=== PATIENT | female | born 1950 | race Caucasian/White ===

== ENCOUNTER 2017-02-03 13:36 | Observation (INO) | payer OTHER, MEDICARE ==
[~2017-02-03] VITALS: Ht 175.3 cm; Wt 61.6 kg
[2017-02-03 13:55] VITALS: BP 99/59; PULSE 77; RESP 18; TEMP 98.4; O2SAT 96; O2SAT 97
--- NOTE | 2017-02-03 14:11 | PD ---
HPI Chief Complaint: General Weakness Time Seen by Provider: 14:06 Travel History International Travel<30 days: No Contact w/Intl Traveler<30days: No Traveled to known affect area: No History of Present Illness HPI 66-year-old female that presents to the ED for evaluation of possible altered mental status. Most of the information is provided by ambulance as patient herself is not really good historian is not really cooperative. Patient states that she has a history of cancer and chronic back and leg pain. Patient takes apparently morphine. Per ambulance report they where called because the [facility] sponsored went to her house and noticed that she was altered and cannot take care of herself that she was brought here. Apparently per ambulance she was not cooperative and she did not want to come here so they had to have a long conversation with parent after an hour she decided to come. Per patient she feels very weak and she feels like she cannot do anything. She per ambulance report to a morphine pill in front of her and she was lethargic during that time. Per nurse report she's been here before also per her medical records here that did not appear to be so. She is chronically was [facility] acted before. She denies any other medical issue. Per patient she lives alone. Per patient he has no family in the area.. She has no allergies to medication. She does appear to be lethargic on exam but she is easily arousable and appears to be alert and oriented 3. PFSH Past Medical History ?: Not Social History Alcohol Use: No (on occassion) Tobacco Use: No Substance Use: No Allergies-Medications (Allergen,Severity, Reaction): Coded Allergies: No Known Allergies (Unverified , 02/03/17) Reported Meds & Prescriptions Reported Meds & Active Scripts Active Reported Restoril (Temazepam) 30 Mg Cap 30 Mg PO HS Morphine IR (Morphine Sulfate) 15 Mg Tab 15 Mg PO Q6HR PRN Morphine ER (Morphine Sulfate) 30 Mg Tab 30 Mg PO BID Review of Systems ROS Limitations: Uncooperative, Poor Historian Except as stated in HPI: all other systems reviewed are Neg Physical Exam Exam Limitations: Poor Historian, Uncooperative Narrative GENERAL: SKIN: Warm and dry. HEAD: Atraumatic. Normocephalic. EYES: Pupils equal and round. No scleral icterus. No injection or drainage. ENT: No nasal bleeding or discharge. Mucous membranes pink and moist. Tongue is midline. No uvula deviation. NECK: Trachea midline. No JVD. CARDIOVASCULAR: Regular rate and rhythm. No murmurs, S3, S4. RESPIRATORY: No accessory muscle use. Clear to auscultation. Breath sounds equal bilaterally. GASTROINTESTINAL: Abdomen soft, non-tender, nondistended. Hepatic and splenic margins not palpable. MUSCULOSKELETAL: Extremities without clubbing, cyanosis, or edema. No obvious deformities. Full range of motion of the upper and lower extremities bilaterally. 2+ pulses bilaterally. NEUROLOGICAL: Awake and alert and oriented 3. No obvious cranial nerve deficits. Motor grossly within normal limits. Five out of 5 muscle strength in the arms and legs. Normal speech. PSYCHIATRIC: Appropriate mood and affect; insight and judgment normal. Data Data Last Documented VS Vital Signs Date Time Temp Pulse Resp B/P Pulse Ox O2 Delivery O2 Flow Rate FiO2 02/03/17 15:39 74 18 91/62 98 Room Air 02/03/17 13:55 98.4 Orders Electrocardiogram (02/03/17 13:51) Ammonia (02/03/17 13:51) Complete Blood Count With Diff (02/03/17 13:51) Comprehensive Metabolic Panel (02/03/17 13:51) Creatine Kinase (Cpk) (02/03/17 13:51) Prothrombin Time / Inr (Pt) (02/03/17 13:51) Act Partial Throm Time (Ptt) (02/03/17 13:51) Troponin I (02/03/17 13:51) Thyroid Stimulating Hormone (02/03/17 13:51) Urinalysis - C+S If Indicated (02/03/17 13:51) Lactic Acid Sepsis Protocol (02/03/17 13:51) Blood Culture (02/03/17 13:51) Chest, Single Ap (02/03/17 13:51) Ct Brain W/O Iv Contrast(Rout) (02/03/17 13:51) Blood Glucose (02/03/17 13:51) Ecg Monitoring (02/03/17 13:51) Iv Access Insert/Monitor (02/03/17 13:51) Oximetry (02/03/17 13:51) Free T3 (02/03/17 15:26) Thyroxine (T4) (02/03/17 15:26) Dexamethasone Inj (Decadron Inj) (02/03/17 15:30) Labs Laboratory Tests Test 02/03/17 02/03/17 14:10 14:22 White Blood Count 4.1 TH/MM3 Red Blood Count 2.93 MIL/MM3 Hemoglobin 9.0 GM/DL Hematocrit 27.0 % Mean Corpuscular Volume 92.3 FL Mean Corpuscular Hemoglobin 30.8 PG Mean Corpuscular Hemoglobin 33.3 % Concent Red Cell Distribution Width 18.8 % Platelet Count 206 TH/MM3 Mean Platelet Volume 8.7 FL Neutrophils (%) (Auto) 52.3 % Lymphocytes (%) (Auto) 39.2 % Monocytes (%) (Auto) 5.8 % Eosinophils (%) (Auto) 1.4 % Basophils (%) (Auto) 1.3 % Neutrophils # (Auto) 2.1 TH/MM3 Lymphocytes # (Auto) 1.6 TH/MM3 Monocytes # (Auto) 0.2 TH/MM3 Eosinophils # (Auto) 0.1 TH/MM3 Basophils # (Auto) 0.1 TH/MM3 CBC Comment DIFF FINAL Differential Comment Prothrombin Time 11.1 SEC Prothromb Time International 1.0 RATIO Ratio Activated Partial 31.9 SEC Thromboplast Time Sodium Level 142 MEQ/L Potassium Level 4.5 MEQ/L Chloride Level 111 MEQ/L Carbon Dioxide Level 27.0 MEQ/L Anion Gap 4 MEQ/L Blood Urea Nitrogen 15 MG/DL Creatinine 0.97 MG/DL Estimat Glomerular Filtration 58 ML/MIN Rate Random Glucose 68 MG/DL Calcium Level 8.2 MG/DL Total Bilirubin 0.4 MG/DL Aspartate Amino Transf 18 U/L (AST/SGOT) Alanine Aminotransferase 14 U/L (ALT/SGPT) Alkaline Phosphatase 76 U/L Total Creatine Kinase 192 U/L Troponin I LESS THAN 0.02 NG/ML Total Protein 7.0 GM/DL Albumin 3.2 GM/DL Thyroid Stimulating Hormone 71.300 uIU/ML 3rd Gen Lactic Acid Level 0.6 mmol/L Ammonia 25 MCMOL/L [facility] Medical Decision Making Medical Screen Exam Complete: Yes Emergency Medical Condition: Yes Medical Record Reviewed: Yes Interpretation(s) CBC & BMP Diagram 02/03/17 14:10 TSH in the 70s LFTS WNL ammonia WNL EKG shows sinus rhythm with no sign of acute ischemia or arrythmia. troponin and CKMB negative Differential Diagnosis Altered mental status versus medication abuse versus failure to take care of self versus chronic pain versus psychiatric illness versus sepsis Narrative Course 66-year-old female that presents to the ED for evaluation of altered mental status. Patient was properly examined and was found to have signs and symptoms consistent appears to be altered mental status. Unclear etiology. Patient is not a good historian she has no family in the area or anybody to provide any information. She lives by herself. Per nurse report she was here as a [facility] acted before but I have no records of this. Labs and imaging will be ordered. Patient was found to be slightly hypotensive of per patient this is her normal. She does appear to be somewhat under the influence of narcotics as she is somewhat somnolent and arousable. Labs and imaging here show very high TSH. The look of the previous note and patient was just admitted actually less than a couple weeks ago. Patient wants similar presentation. Patient had more of hepatic altered mental status. I have a strong suspicion that likely her symptoms are related to the hypothyroidism and she is likely not taking her medications. Case was discussed with my attending Dr. Abreu who evaluated the patient with me and recommend started on Decadron and doing additional labs for the thyroid disease. He also recommends admission. Patient was admitted to Dr. Quiroga who agrees to admission. Procedures EKG Prior to Arrival: No Diagnosis Primary Impression: Altered mental status Qualified Code: R41.82 - Altered mental status, unspecified altered mental status type Additional Impressions: Hypothyroidism Qualified Code: E03.9 - Hypothyroidism, unspecified type Hypotension Qualified Code: I95.9 - Hypotension, unspecified hypotension type Failure to thrive in adult Admitting Information Admitting Physician Requests: Admit Sunny Orantes February 03, 2017 14:11
[2017-02-03] MEDS ORDERED: MSIR15 PO (14:17)
[2017-02-03] MEDS ORDERED: MORP1TAB25 PO (14:17)
[2017-02-03] MEDS ORDERED: REST30CA PO (14:17)
[2017-02-03 14:22] LABS: AUTOMATED NEUTROPHIL # 2.1 TH/MM3 (1.8-7.7); BASOPHIL # 0.1 TH/MM3 (0-0.2); BASOPHIL % 1.3 % (0.0-2.0); EOSINOPHIL # 0.1 TH/MM3 (0-0.4); EOSINOPHIL % 1.4 % (0.0-4.0); HEMO FLAGS DIFF FINAL; LYMPH % 39.2 % (9.0-44.0); LYMPHOCYTE # 1.6 TH/MM3 (1.0-4.8); MEAN CELL VOLUME 92.3 FL (80.0-100.0); MEAN CORPUSCULAR HEMOGLOBIN 30.8 PG (27.0-34.0); MEAN CORPUSCULAR HGB CONC 33.3 % (32.0-36.0); MONO % 5.8 % (0.0-8.0); NEUT % 52.3 % (16.0-70.0); PLATELET COUNT 206 TH/MM3 (150-450); RED BLOOD COUNT 2.93 MIL/MM3 (4.00-5.30); RED CELL DISTRIBUTION WIDTH 18.8 % (11.6-17.2); WHITE BLOOD COUNT 4.1 TH/MM3 (4.0-11.0)
--- NOTE | 2017-02-03 14:26 | RADRPT ---
EXAM DATE/TIME: 02/03/2017 13:52 [facility] COMPARISON: No previous studies available for comparison. INDICATIONS : Short of breath MEDICAL HISTORY : None. SURGICAL HISTORY : None. ENCOUNTER: Initial ACUITY: 1 day PAIN SCORE: 0/10 LOCATION: Bilateral chest FINDINGS: Rotated portable AP view of the chest demonstrates a normal-sized cardiac silhouette. Lungs are under inflated with atelectasis at the bases. No effusion, consolidation, or pneumothorax is identified. Dawood tish and soft tissues demonstrate no acute finding. There is an old healed left clavicle fracture. Cli ps overlie the right upper quadrant. CONCLUSION: Underinflation with mild atelectasis at the lung bases. Otherwise, no acute finding is identified. Max Lee MD on February 03, 2017 at 14:23 Board Certified Radiologist. This report was verified electronically.
[2017-02-03 14:33] LABS: APTT (PATIENT) 31.9 SEC (24.3-30.1); PROTHROMBIN TIME - PATIENT 11.1 SEC (9.8-11.6)
[2017-02-03 14:48] VITALS: BP 83/53; PULSE 72; RESP 18; O2SAT 97
[2017-02-03 14:57] LABS: ALT (GPT) 14 U/L (10-53); ANION GAP 4 MEQ/L (5-15); BLOOD UREA NITROGEN 15 MG/DL (7-18); CHLORIDE 111 MEQ/L (98-107); GLOMERULAR FILTRATION RATE 58 ML/MIN (>89); POTASSIUM 4.5 MEQ/L (3.5-5.1); SODIUM (NA) 142 MEQ/L (136-145)
[2017-02-03 15:24] LABS: ALKALINE PHOSPHATASE 76 U/L (45-117); AST (GOT) 18 U/L (15-37); CREATINE KINASE 192 U/L (26-192); TOTAL BILIRUBIN ADULT 0.4 MG/DL (0.2-1.0)
[2017-02-03] MEDS ORDERED: DEXAMETHASONE SOD PHOS 20 MG/5 ML VIAL IV PUSH ONE (15:30)
[2017-02-03 15:39] VITALS: BP 91/62; PULSE 74; RESP 18; O2SAT 98
--- NOTE | 2017-02-03 16:31 | PD ---
Data Data Last Documented VS Vital Signs Date Time Temp Pulse Resp B/P Pulse Ox O2 Delivery O2 Flow Rate FiO2 02/03/17 15:39 74 18 91/62 98 Room Air 02/03/17 13:55 98.4 Orders Electrocardiogram (02/03/17 13:51) Ammonia (02/03/17 13:51) Complete Blood Count With Diff (02/03/17 13:51) Comprehensive Metabolic Panel (02/03/17 13:51) Creatine Kinase (Cpk) (02/03/17 13:51) Prothrombin Time / Inr (Pt) (02/03/17 13:51) Act Partial Throm Time (Ptt) (02/03/17 13:51) Troponin I (02/03/17 13:51) Thyroid Stimulating Hormone (02/03/17 13:51) Urinalysis - C+S If Indicated (02/03/17 13:51) Lactic Acid Sepsis Protocol (02/03/17 13:51) Blood Culture (02/03/17 13:51) Chest, Single Ap (02/03/17 13:51) Blood Glucose (02/03/17 13:51) Ecg Monitoring (02/03/17 13:51) Iv Access Insert/Monitor (02/03/17 13:51) Oximetry (02/03/17 13:51) Free T3 (02/03/17 15:26) Thyroxine (T4) (02/03/17 15:26) Dexamethasone Inj (Decadron Inj) (02/03/17 15:30) Admit Order (Ed Use Only) (02/03/17 16:00) Labs Laboratory Tests Test 02/03/17 02/03/17 14:10 14:22 White Blood Count 4.1 TH/MM3 Red Blood Count 2.93 MIL/MM3 Hemoglobin 9.0 GM/DL Hematocrit 27.0 % Mean Corpuscular Volume 92.3 FL Mean Corpuscular Hemoglobin 30.8 PG Mean Corpuscular Hemoglobin 33.3 % Concent Red Cell Distribution Width 18.8 % Platelet Count 206 TH/MM3 Mean Platelet Volume 8.7 FL Neutrophils (%) (Auto) 52.3 % Lymphocytes (%) (Auto) 39.2 % Monocytes (%) (Auto) 5.8 % Eosinophils (%) (Auto) 1.4 % Basophils (%) (Auto) 1.3 % Neutrophils # (Auto) 2.1 TH/MM3 Lymphocytes # (Auto) 1.6 TH/MM3 Monocytes # (Auto) 0.2 TH/MM3 Eosinophils # (Auto) 0.1 TH/MM3 Basophils # (Auto) 0.1 TH/MM3 CBC Comment DIFF FINAL Differential Comment Prothrombin Time 11.1 SEC Prothromb Time International 1.0 RATIO Ratio Activated Partial 31.9 SEC Thromboplast Time Sodium Level 142 MEQ/L Potassium Level 4.5 MEQ/L Chloride Level 111 MEQ/L Carbon Dioxide Level 27.0 MEQ/L Anion Gap 4 MEQ/L Blood Urea Nitrogen 15 MG/DL Creatinine 0.97 MG/DL Estimat Glomerular Filtration 58 ML/MIN Rate Random Glucose 68 MG/DL Calcium Level 8.2 MG/DL Total Bilirubin 0.4 MG/DL Aspartate Amino Transf 18 U/L (AST/SGOT) Alanine Aminotransferase 14 U/L (ALT/SGPT) Alkaline Phosphatase 76 U/L Total Creatine Kinase 192 U/L Troponin I LESS THAN 0.02 NG/ML Total Protein 7.0 GM/DL Albumin 3.2 GM/DL Thyroxine (T4) 1.7 MCG/DL Free Triiodothyronine (T3) 0.56 PG/ML pg/dL Thyroid Stimulating Hormone 71.300 uIU/ML 3rd Gen Lactic Acid Level 0.6 mmol/L Ammonia 25 MCMOL/L [facility] Supervised Visit with TOM: Yes Narrative Course I, Dr. Abreu, have reviewed the advance practice practitioner's documentation and am in agreement, met with the patient face to face, made the diagnosis, and the medical decision making was done by me. *My assessment and Findings: 66-year-old female presents some somnolent decreased energy. My physical exam please neurologically intact but somnolent. She is able to give a complete history. When asked if she has thyroid problems she said yes and states he has not been taking her medicine. 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 She was given Decadron and any additional free T3 and free T4 labs were sent. Patient will be for admission with [facility]. Diagnosis Primary Impression: Altered mental status Qualified Code: R41.82 - Altered mental status, unspecified altered mental status type Additional Impressions: Hypothyroidism Qualified Code: E03.9 - Hypothyroidism, unspecified type Failure to thrive in adult Hypotension Qualified Code: I95.9 - Hypotension, unspecified hypotension type Admitting Information Admitting Physician Requests: Admit Scripts Levothyroxine 25 Mcg Tab25 Mcg PO DAILY@0600 #30 TAB Ref 3 Prov:Gadiel Kirby MD 02/04/17 Sennosides-Docusate Sodium (Ashley-Colace)8.6-50 Mg Tab1 Tab PO BID PRN ( Constipation) #60 TAB Ref 0 Prov:Gadiel Kirby MD 02/04/17 Condition: Stable [place] Abreu MD February 03, 2017 16:31
[2017-02-03] MEDS: SODIUM CHLOR 0.9% 1000 ML INJ 1,000 ML IV SCH ×2 (17:00→18:23)
[2017-02-03] MEDS ORDERED: MAGNESIUM HYDROXIDE SUSP 30 ML CUP PO PRN (17:00)
[2017-02-03] MEDS ORDERED: ONDANSETRON HCL 4 MG/2 ML VIAL IVP PRN (17:00)
[2017-02-03] MEDS ORDERED: ACETAMINOPHEN 325 MG TAB PO PRN (17:00)
[2017-02-03] MEDS: HEPARIN SODIUM - SQ 10,000 UNITS/ML VIAL SQ SCH (17:00)
[2017-02-03] MEDS ORDERED: NALOXONE HCL 0.4 MG/ML AMP IV PRN (17:00)
[2017-02-03 17:04] LABS: FREE T3 0.56 PG/ML (2.18-3.98); THYROXINE (T4) 1.7 MCG/DL (4.8-13.9)
[2017-02-03 17:25] LABS: BACTERIA, URINE RARE /hpf; BLOOD, URINE NEG (NEG); GLUCOSE,URINE NEG (NEG); KETONE, URINE NEG (NEG); NITRITE,URINE NEG (NEG); URINE COLOR YELLOW (YELLW/STRAW)
[2017-02-03 17:27] LABS: COMMENT (UR) CATH-CULTURE IND; CULTURE IF INDICATED CATH CULTURE IND
[2017-02-03 17:54] VITALS: BP 98/56; PULSE 78; RESP 18; O2SAT 98
[2017-02-03 18:41] VITALS: BP 110/67; PULSE 71; RESP 19; TEMP 95.3; O2SAT 91
[2017-02-03 20:47] VITALS: BP 108/73; PULSE 75; RESP 18; TEMP 97.7; O2SAT 97
[2017-02-03] MEDS ORDERED: RESP: ALBUTEROL 2.5 MG/IPRATROPIUM 0.5 MG NEB (PRN) NEB (21:15)
[2017-02-03] MEDS ORDERED: MORPHINE SULFATE 15 MG TAB PO PRN (21:15)
[2017-02-03] MEDS ORDERED: MORPHINE SULFATE 4 MG/ML INJ IV PUSH PRN (21:15)
[2017-02-03] MEDS: DEXT 5%-NACL 0.45% 1000 ML INJ 1,000 ML IV SCH (21:15)
--- NOTE | 2017-02-03 21:24 | HHI.HP ---
[facility] No Primary Care Physician Admission Diagnosis altered mental status, severe hypothyroidism, hypotension Diagnoses: Chief Complaint: Feeling unwell Travel History International Travel<30 Days: No Contact w/Intl Traveler <30 Da: No Traveled to Known Affected Are: No History of Present Illness The patient is a 66-year-old female with past medical history of medullary thyroid cancer who is presenting to the hospital feeling unwell. She says her symptoms started on Friday where she noted to develop a sick stomach. She endorsed diarrhea and nausea and vomiting. She says the diarrhea has been alternating with constipation. She says over the past few days she has actually had to manually disimpact herself. She says that she has had a hard time breathing over the past 6 hours and has progressively been getting worse. She denies any chest pain. She does endorse a difficult time swallowing and wanted to see if water would help with that. She says she believes she might of had a stroke a few weeks ago because she notes a new facial droop. She says she has previously been on hospice but quit that because she did not like the way she felt like she was on " watch". She says she is open to trying a different hospice group. She believes she was with [facility] previously. The pt also endorses fluctuating edema in the lower extremities which has currently improved. Review of Systems ROS Limitations: Clinical Condition, Poor Historian Except as stated in HPI: all other systems reviewed are Neg Past Family Social History Past Medical History Medullary thyroid cancer Tuberculosis Hypotension Allergies: Coded Allergies: No Known Allergies (Unverified , 02/03/17) Active Ordered Medications Current Medications Medications (Trade) Dose Ordered Sig/Britany Route Start Time Stop Time Status Last Admin (NS 1000 ml Inj) 1,000 ml @ 75 mls/hr [id number] IV 02/03/17 17:00 02/03/17 18:23 (Tylenol) 650 mg Q4H PRN PO 02/03/17 17:00 (Zofran Inj) 4 mg Q6H PRN IVP 02/03/17 17:00 (Milk Of Magnesia Liq) 30 ml Q12H PRN PO 02/03/17 17:00 (Heparin Inj) 5,000 units Q12H SQ 02/03/17 17:00 (Narcan Inj) 0.4 mg UNSCH PRN IV 02/03/17 17:00 (SoluMEDROL INJ) 125 mg ONCE ONCE IV PUSH 02/03/17 21:15 02/03/17 21:16 UNV Methylprednisolone Sodium Succinate 40 mg 40 mg Q6HR IV PUSH 02/04/17 03:00 UNV (Levaquin 750 Mg Premix Inj) 150 ml @ 100 mls/hr Q24H IV 02/03/17 21:15 UNV Family History Her daughter of an aneurysm Her father of a heart attack Social History The patient says she still smokes. She does drink rarely. Physical Exam Vital Signs Vital Signs Date Time Temp Pulse Resp B/P Pulse Ox O2 Delivery O2 Flow Rate FiO2 02/03/17 20:47 97.7 75 18 108/73 97 02/03/17 18:41 95.3 71 19 110/67 91 02/03/17 17:54 78 18 98/56 98 Room Air 02/03/17 15:39 74 18 91/62 98 Room Air 02/03/17 14:48 72 18 83/53 97 Room Air 02/03/17 13:55 80 18 100 Room Air 02/03/17 13:55 18 96 Room Air 02/03/17 13:55 98.4 77 18 99/59 97 Room Air Physical Exam GENERAL: Appears frail, older than stated age. SKIN: Warm and dry. HEAD: Atraumatic. Normocephalic. EYES: Pupils equal and round. No scleral icterus. No injection or drainage. ENT: No nasal bleeding or discharge. Mucous membranes pink and moist. Tongue is midline. No uvula deviation. NECK: Trachea midline. No JVD. CARDIOVASCULAR: Regular rate and rhythm. No murmurs, S3, S4. RESPIRATORY: No accessory muscle use. Diffuse wheezing noted. GASTROINTESTINAL: Abdomen soft, non-tender, nondistended. Hepatic and splenic margins not palpable. MUSCULOSKELETAL: Extremities without clubbing, cyanosis, or edema. No obvious deformities. Full range of motion of the upper and lower extremities bilaterally. 2+ pulses bilaterally. NEUROLOGICAL: Awake and alert and oriented 3. No obvious cranial nerve deficits. Motor grossly within normal limits. Five out of 5 muscle strength in the arms and legs. Normal speech. PSYCHIATRIC: Flattened affect. Laboratory Laboratory Tests Test 02/03/17 02/03/17 02/03/17 14:10 14:22 17:03 White Blood Count 4.1 Red Blood Count 2.93 Hemoglobin 9.0 Hematocrit 27.0 Mean Corpuscular Volume 92.3 Mean Corpuscular Hemoglobin 30.8 Mean Corpuscular Hemoglobin 33.3 Concent Red Cell Distribution Width 18.8 Platelet Count 206 Mean Platelet Volume 8.7 Neutrophils (%) (Auto) 52.3 Lymphocytes (%) (Auto) 39.2 Monocytes (%) (Auto) 5.8 Eosinophils (%) (Auto) 1.4 Basophils (%) (Auto) 1.3 Neutrophils # (Auto) 2.1 Lymphocytes # (Auto) 1.6 Monocytes # (Auto) 0.2 Eosinophils # (Auto) 0.1 Basophils # (Auto) 0.1 CBC Comment DIFF FINAL Differential Comment Prothrombin Time 11.1 Prothromb Time International 1.0 Ratio Activated Partial 31.9 Thromboplast Time Sodium Level 142 Potassium Level 4.5 Chloride Level 111 Carbon Dioxide Level 27.0 Anion Gap 4 Blood Urea Nitrogen 15 Creatinine 0.97 Estimat Glomerular Filtration 58 Rate Random Glucose 68 Calcium Level 8.2 Total Bilirubin 0.4 Aspartate Amino Transf 18 (AST/SGOT) Alanine Aminotransferase 14 (ALT/SGPT) Alkaline Phosphatase 76 Total Creatine Kinase 192 Troponin I LESS THAN 0.02 Total Protein 7.0 Albumin 3.2 Thyroxine (T4) 1.7 Free Triiodothyronine (T3) 0.56 pg/dL Thyroid Stimulating Hormone 71.300 3rd Gen Lactic Acid Level 0.6 Ammonia 25 Urine Color YELLOW Urine Turbidity CLEAR Urine pH 6.0 Urine Specific [place] 1.014 Urine Protein NEG Urine Glucose (UA) NEG Urine Ketones NEG Urine Occult Blood NEG Urine Nitrite NEG Urine Bilirubin NEG Urine Urobilinogen 2.0 Urine Leukocyte Esterase NEG Urine RBC LESS THAN 1 Urine WBC 1 Urine Bacteria RARE Microscopic Urinalysis Comment CATH-CULTURE IND Date/Time Procedure Status Source Growth 02/03/17 17:03 Urine Culture Received Urine Catheterized Urine Pending 02/03/17 14:40 Aerobic Blood Culture Received Blood Peripheral Pending 02/03/17 14:40 Anaerobic Blood Culture Received Blood Peripheral Pending Result Diagram: 02/03/17 1410 02/03/17 1410 Imaging Last Impressions Chest X-Ray 02/03/17 1351 Signed Impressions: Service Date/Time: Friday, February 03, 2017 13:52 - CONCLUSION: Underinflation with mild atelectasis at the lung bases. Otherwise, no acute finding is identified. Max Lee MD Assessment and Plan Assessment and Plan Dyspnea The patient endorses shortness of breath that has been progressively getting worse. She has wheezing on exam. Chest x-ray without acute abnormality. She does have a history of smoking and may have underlying COPD. - Check an ABG. - Start IV Solu-Medrol and standing duo nebs. - Oxygen as needed. - Start IV Levaquin. Nausea and vomiting/ Constipation/ Difficulty swallowing The patient endorses symptoms going on for a couple days prior to presentation. She endorses difficulty swallowing. She has been manually disimpacting herself at home. - Bowel regimen. - Antiemetics as needed. - Keep the patient nothing by mouth with IV fluids for now. - Swallow evaluation pending. Hypothyroidism TSH markedly elevated. Free T4 and T3 are low. - Start levothyroxine 25 g daily and monitor. Anemia Likely anemia of chronic disease. - Follow CBC and transfuse as needed. Hypoglycemia Likely secondary to decreased by mouth intake. - Switch IV fluids to D5 half normal saline. - Follow glucose every 6 hours. - Swallow evaluation pending. Advance diet as tolerated. The patient is nothing by mouth for now. UTI UA indicative of possible infection. - Continue Levaquin and follow urine culture. Failure to thrive The patient says she was previously on hospice care. She affirms she is DNR. She is interested in home hospice. - hospice and case management consults placed. - PT/ ST evals. - the pt does not want to be discharged to a retirement. Eval for home hospice as above. - continue chronic pain meds. PPx: SCDs. Code Status DNR. Discussed Condition With Pt. Physician Certification 2 Midnight Certification Type: Admission for Inpatient Services Order for Inpatient Services The services are ordered in accordance with Medicare regulations or non- Medicare payer requirements, as applicable. In the case of services not specified as inpatient-only, they are appropriately provided as inpatient services in accordance with the 2-midnight benchmark. Estimated LOS (days): 2 days is the estimated time the patient will need to remain in the hospital, assuming treatment plan goals are met and no additional complications. Post-Hospital Plan: Not yet determined Jericho Reilly DO February 03, 2017 21:24
[2017-02-03 21:47] LABS: HEMATOCRIT 32.6 % (35.0-46.0); REVIEW FLAG FINAL
[2017-02-03] MEDS ORDERED: methylPREDNISolone SOD SUCC 125 MG/2 ML VIAL IV PUSH ONE (22:00)
[2017-02-03 22:14] LABS: CREATINE KINASE 203 U/L (26-192)
[2017-02-03] MEDS: RESP: ALBUTEROL 2.5 MG/IPRATROPIUM 0.5 MG NEB (SCH) NEB (22:22)
[2017-02-03 22:26] LABS: CKMB 6.9 NG/ML (0.5-3.6)
[2017-02-03 22:34] LABS: BLOOD GAS BASE EXCESS -3.2 mmol/L (-2-2); BLOOD GAS CARBOXYHEMOGLOBIN 1.6 % (0-4); BLOOD GAS HCO3 22 mmol/L (22-26); BLOOD GAS METHEMOGLOBIN 0.7 % (0-2); BLOOD GAS O2 HGB SATURATION 91 % (90-100); BLOOD GAS OXYGEN CONTENT 13.3 Vol % (12.0-20.0); BLOOD GAS PCO2 41 mmHg (38-42); BLOOD GAS PO2 83 mmHg (61-120); BLOOD GAS TOTAL HGB 10.4 G/DL (12.0-16.0); TEMP CORR TO 98.6
[2017-02-03 22:35] LABS: CRITICAL VALUE NO; DRAW SITE RT RADIAL; FIO2 21 %; NUMBER OF ARTERIAL PUNCTURES 1; OXYGEN DEVICE ROOM AIR; STAT YES; ULNAR PULSE PRESENT
[2017-02-03] MEDS: LEVOFLOXACIN 750 MG PREMIX INJ 150 ML IV SCH ×2 (23:03→23:13)
[2017-02-04 00:45] VITALS: BP 92/61; PULSE 75; RESP 18; TEMP 97.8; O2SAT 96
[2017-02-04 02:31] LABS: CREATINE KINASE 157 U/L (26-192)
[2017-02-04] MEDS ORDERED: methylPREDNISolone SOD SUCC 40 MG/1 ML VIAL IV PUSH SCH (04:00)
[2017-02-04] MEDS: HEPARIN SODIUM - SQ 10,000 UNITS/ML VIAL SQ SCH (04:14)
[2017-02-04 05:23] VITALS: BP 128/83; PULSE 72; RESP 20; TEMP 97.1; O2SAT 99
[2017-02-04 06:00] VITALS: PULSE 68
[2017-02-04] MEDS: LEVOTHYROXINE SODIUM 25 MCG TAB PO SCH ×2 (06:00→09:47)
[2017-02-04 07:39] VITALS: O2SAT 98
[2017-02-04] MEDS: RESP: ALBUTEROL 2.5 MG/IPRATROPIUM 0.5 MG NEB (SCH) NEB ×2 (07:39→11:47)
[2017-02-04 08:36] VITALS: BP 127/71; PULSE 82; RESP 22; TEMP 97.7; O2SAT 96
[2017-02-04] MEDS: POLYETHYLENE GLYCOL 17 GM PKG PO SCH ×3 (09:00→09:54)
[2017-02-04] MEDS: DOCUSATE SODIUM 100 MG CAP PO SCH ×2 (09:00→09:47)
[2017-02-04] MEDS ORDERED: SENNOSIDES 8.6 MG TAB PO SCH (09:00)
--- NOTE | 2017-02-04 09:34 | HHI.PR ---
Subjective Remarks Follow-up shortness of breath/nausea and vomiting 02/04/17-patient seen and examined, reports improvement of shortness of breath as well as chest pain and heart palpitation. Denies any nausea and vomiting. She past swallow eval this morning. Patient would like to be discharged home Objective Vitals Vital Signs Date Time Temp Pulse Resp B/P Pulse Ox O2 Delivery O2 Flow Rate FiO2 02/04/17 08:36 97.7 82 22 127/71 96 02/04/17 07:39 98 21 02/04/17 05:23 97.1 72 20 128/83 99 02/04/17 00:45 97.8 75 18 92/61 96 02/03/17 20:47 97.7 75 18 108/73 97 02/03/17 18:41 95.3 71 19 110/67 91 02/03/17 17:54 78 18 98/56 98 Room Air 02/03/17 15:39 74 18 91/62 98 Room Air 02/03/17 14:48 72 18 83/53 97 Room Air 02/03/17 13:55 80 18 100 Room Air 02/03/17 13:55 18 96 Room Air 02/03/17 13:55 98.4 77 18 99/59 97 Room Air I/O 02/03/17 02/03/17 02/03/17 02/04/17 02/04/17 02/04/17 07:00 15:00 23:00 07:00 15:00 23:00 Intake Total 949 ml Output Total 700 ml Balance 249 ml Intake IV Total 949 ml Output Urine Total 700 ml Result Diagram: 02/03/17 2100 02/03/17 1410 Imaging Last Impressions Chest X-Ray 02/03/17 1351 Signed Impressions: Service Date/Time: Friday, February 03, 2017 13:52 - CONCLUSION: Underinflation with mild atelectasis at the lung bases. Otherwise, no acute finding is identified. Max Lee MD Objective Remarks GENERAL: NAD SKIN: Warm and dry. HEAD: Normocephalic. EYES: No scleral icterus. No injection or drainage. NECK: Supple, trachea midline. No JVD or lymphadenopathy. CARDIOVASCULAR: Regular rate and rhythm without murmurs, gallops, or rubs. RESPIRATORY: Breath sounds equal bilaterally. No accessory muscle use. GASTROINTESTINAL: Abdomen soft, non-tender, nondistended. MUSCULOSKELETAL: No cyanosis, or edema. BACK: Nontender without obvious deformity. No CVA tenderness. A/P Problem List: (1) Dyspnea ICD Code: R06.00 Status: Acute (2) Nausea and vomiting ICD Code: R11.2 Status: Acute Assessment and Plan 66-year-old female with Dyspnea-resolved Chest x-ray negative ABG unremarkable Discontinue Solu-Medrol, IV Levaquin Start by mouth prednisone 5 mg daily and continue with DuoNeb when necessary Nausea and vomiting/ Constipation/ Difficulty swallowing Symptoms resolved Passed Swallow eval this a.m. Hypothyroidism TSH markedly elevated. Free T4 and T3 are low. - Started on levothyroxine 25 g daily and monitor. -Repeat free T4 and TSH in 6 weeks Anemia: Likely anemia of chronic disease. - Follow CBC and transfuse as needed. Hypoglycemia Likely secondary to decreased by mouth intake. - On D5 half normal saline. UA negative therefore will discontinue antibiotic Failure to thrive The patient says she was previously on hospice care. She affirms she is DNR. She is interested in home hospice. -Passed swallow eval. Dietary consult PPx: SCDs. Discharge Planning Discharge patient to home Condition on discharge: Improved Regular Diet as tolerated Ad Eleanor activity Rx written: see EMR Follow-up with primary care physician in 1 week Gadiel Kirby MD February 04, 2017 09:34
--- NOTE | 2017-02-04 09:34 | HHI.FF ---
Face to Face Verification Diagnosis: (1) Failure to thrive in adult (2) Hypothyroidism (3) Dyspnea (4) Nausea and vomiting Home Health Nursing Order: Signs/symptoms of disease process Medication education-adverse effect I have seen patient Vianey Finch on 02/04/17. My clinical findings support the need for the requested home health care services because: Deconditioned w/ increased weakness I certify that my clinical findings support that this patient is homebound because: Poor cardiac reserve Gadiel Kirby MD February 04, 2017 09:34
[2017-02-04] MEDS ORDERED: PERI8.6T PO (09:35)
[2017-02-04] MEDS ORDERED: LEVO25TA4 PO (09:38)
[2017-02-04] MEDS: DEXT 5%-NACL 0.45% 1000 ML INJ 1,000 ML IV SCH ×3 (09:44→09:54)
--- NOTE | 2017-02-04 14:51 | EKG ---
Date Performed: 02/03/2017 Time Performed: 13:58:11 PTAGE: 66 years EKG: Sinus rhythm WITH FIRST DEGREE AV BLOCK BORDERLINE LEFT AXIS DEVIATION LOW QRS VOLTAGE IN PRECORDIAL LEADS ABNORM AL ECG NO PREVIOUS TRACING DOCTOR: Jordana Kessler Interpretating Date/Time 02/04/2017 14:49:53
[2017-02-05] MEDS ORDERED: predniSONE 5 MG TAB PO SCH (09:00)
== END 2017-02-04 13:48 | disposition home health service (06) ==
LOC: NEPE 13:36 → NEDA 16:03 → INTOOBSV 16:03 → N05B 18:08
PROVIDERS: ADMIT Hospitalist; ATTEND Hospitalist
DX: R06.00 Dyspnea, unspecified (principal); R11.2 Nausea with vomiting, unspecified; K59.00 Constipation, unspecified; R13.10 Dysphagia, unspecified; R06.2 Wheezing; E03.9 Hypothyroidism, unspecified; D64.9 Anemia, unspecified; E16.2 Hypoglycemia, unspecified; N39.0 Urinary tract infection, site not specified; R62.7 Adult failure to thrive; F17.200 Nicotine dependence, unspecified, uncomplicated; Z66 Do not resuscitate; Z85.850 Personal history of malignant neoplasm of thyroid
CPT/HCPCS: 36600; 71010; 80053; 81001; 82140; 82550; 82552; 82805; 82948; 83605; 84436; 84443; 84481; 84484; 85014; 85018; 85025; 85610; 85730; 87040; 87086; 92610; 93005; 94640; 94664; 96374; 97161; 99285; G0378; G8987; G8988; G8996; G8997; G8998; J1100; J1644; J1956; J2920; J2930; J7030